=== PATIENT | male | born 1955 | race African-American/Black ===

== ENCOUNTER → 2020-07-23 | Emergency (ER) | payer MEDICAID ==
[~2020-07-23] VITALS: Ht 162.6 cm; Wt 68.0 kg
[~2020-07-23] MED LIST: Ketorolac 30mg Inj IV ONE; Morphine Sulfate 4mg/ml Inj (IV USE ONLY) IVP ONE
[2020-07-23 14:35] VITALS: BP 158/90
[2020-07-23 15:19] LABS: ANION GAP 15 mmol/L (5-15); BLOOD UREA NITROGEN 11 mg/dL (7-18); CALCIUM 8.6 MG/DL (8.5-10.1); CARBON DIOXIDE 20 MMOL/L (21-32); CHLORIDE 102 MMOL/L (98-107); CREATININE 1.1 MG/DL (0.55-1.30); POTASSIUM 3.7 MMOL/L (3.5-5.1); SODIUM 137 MMOL/L (136-145)
[2020-07-23 15:23] LABS: ALANINE AMINOTRANSFERASE 58 U/L (12-78); ALBUMIN 3.6 G/DL (3.4-5.0); ALBUMIN/GLOBULIN RATIO 0.8 (1.0-2.7); ALKALINE PHOSPHATASE 58 U/L (46-116); ASPARTATE AMINO TRANSFERASE 72 U/L (15-37); BILIRUBIN,TOTAL 0.7 MG/DL (0.2-1.0)
[2020-07-23 15:31] LABS: BASOPHILS % (AUTO) 1.7 % (0.0-2.0); EOSINOPHILS % (AUTO) 0.8 % (0.0-3.0); HEMATOCRIT 33.2 % (42.0-52.0); LYMPHOCYTES % (AUTO) 31.6 % (20.0-45.0); MEAN CORPUSCULAR VOLUME 87 FL (80-99); MONOCYTES % (AUTO) 8.6 % (1.0-10.0); NEUTROPHILS % (AUTO) 57.3 % (45.0-75.0); PLATELET COUNT 149 K/UL (150-450); RED BLOOD COUNT 3.81 M/UL (4.70-6.10); RED CELL DISTRIBUTION WIDTH 12.5 % (11.6-14.8); WHITE BLOOD COUNT 7.2 K/UL (4.8-10.8)
--- NOTE | 2020-07-23 15:35 | Diagnostic Imaging Report ---
EXAM: CT Head Without Intravenous Contrast CLINICAL HISTORY: PAIN TECHNIQUE: Axial computed tomography images of the head/brain without intravenous contrast. CTDI is 53.40 mGy and DLP is 1072.20 mGy-cm. One or more of the following dose reduction techniques were used: automated exposure control, adjustment of the mA and/or kV according to patient size, use of iterative reconstruction technique. COMPARISON: No relevant prior studies available. FINDINGS: Brain: No hemorrhage. No edema. Involutional changes. Ventricles: No ventriculomegaly. Bones/joints: No acute fracture. Soft tissues: Unremarkable. Sinuses: No acute sinusitis. Mastoid air cells: No mastoid effusion. Projectional artifact or fracture of the left shoulder. IMPRESSION: No acute intracranial process. Projectional artifact or fracture of the left shoulder, suggested on the poultry scientist.
--- NOTE | 2020-07-23 15:48 | Diagnostic Imaging Report ---
EXAM: XR Left Shoulder Complete, 2 or More Views CLINICAL HISTORY: PAIN TECHNIQUE: Two or more views of the left shoulder. COMPARISON: No relevant prior studies available. FINDINGS: Bones/joints: Comminuted fracture of the left shoulder with anterior and inferior dislocation of the humeral head relative to the glenoid. There is fragmentation and superior dislocation of the proximal humeral shaft. Soft tissues: No radiodense foreign body. IMPRESSION: Comminuted fracture of the left shoulder with anterior and inferior dislocation of the humeral head relative to the glenoid. There is fragmentation and superior dislocation of the proximal humeral shaft.
--- NOTE | 2020-07-23 15:49 | Diagnostic Imaging Report ---
EXAM: XR Left Humerus, 2 or More Views CLINICAL HISTORY: PAIN TECHNIQUE: Frontal and lateral views of the left humerus. COMPARISON: No relevant prior studies available. FINDINGS: Bones/joints: Comminuted fracture of the left shoulder with anterior and inferior dislocation of the humeral head relative to the glenoid. There is fragmentation and superior dislocation of the proximal humeral shaft. Soft tissues: No radiodense foreign body. IMPRESSION: Comminuted fracture of the left shoulder with anterior and inferior dislocation of the humeral head relative to the glenoid. There is fragmentation and superior dislocation of the proximal humeral shaft.
--- NOTE | 2020-07-23 16:18 | Diagnostic Imaging Report ---
EXAM: CT Cervical Spine Without Intravenous Contrast CLINICAL HISTORY: PAIN TECHNIQUE: Axial computed tomography images of the cervical spine without intravenous contrast. CTDI is 20.20 mGy and DLP is 505.10 mGy-cm. One or more of the following dose reduction techniques were used: automated exposure control, adjustment of the mA and/or kV according to patient size, use of iterative reconstruction technique. COMPARISON: No relevant prior studies available. FINDINGS: Vertebrae: No acute C-spine fracture or malalignment. Degenerative changes. Discs/spinal canal/neural foramina: Degenerative changes. Other bones/joints: Left shoulder fracture. Soft tissues: Unremarkable. Trachea: Mild debris in the trachea. Lung apices: Minimal emphysematous changes in the lung apices. IMPRESSION: No acute C-spine fracture or malalignment.
--- NOTE | 2020-07-23 16:23 | Emergency Room Report ---
History of Present Illness General Chief Complaint: Overdose Source: Patient (Melida Blackmon) Present Illness HPI 64 YO male presents to the ED BIBA for syncope while doing illicit drugs. Pt. reports Left shoulder and elbow pain that is 10/10 in severity and exacerbated with any movement of the left arm. He does not remember falling. He is unaware about what has happened. Pt. denies MORALES, neck or back pain. He denies paresthesias. He denies pmhx or allergies. HPI are limited due to pt. currently altered mentation and need for frequent redirection to pertinent questions. 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 (Melida Blackmon) Patient History Past Medical History: see triage record Past Surgical History: none Pertinent Family History: none Immunizations: UTD Reviewed Nursing Documentation: PMH: Agreed; PSxH: Agreed (Melida Blackmon) Nursing Documentation-PMH Past Medical History: No History, Except For (Melida Blackmon) Review of Systems All Other Systems: negative except mentioned in HPI (Melida Blackmon) Physical Exam Vital Signs Date Time Temp Pulse Resp B/P (MAP) Pulse Ox O2 Delivery O2 Flow Rate FiO2 07/23/20 14:25 98.4 96 18 158/90 (112) 98 Room Air Sp02 EP Interpretation: reviewed, normal General Appearance: alert, GCS 15, non-toxic, mild distress Head: normocephalic, atraumatic Eyes: left eye other - There is moderate swelling and visible contusion to the left zygomatic area. Patient has full extraocular motor movements. --- pt. denies tenderness on exam; bilateral eye normal inspection, bilateral eye PERRL, bilateral eye EOMI ENT: hearing grossly normal, normal voice, other - no oral lesions Neck: full range of motion, no bony tend Respiratory: chest non-tender, lungs clear, normal breath sounds, no respiratory distress, no wheezing, speaking full sentences Cardiovascular #1: regular rate, rhythm, no edema Cardiovascular #2: 3+ radial (R), 3+ radial (L) Gastrointestinal: non tender, soft, non-distended, no guarding, other - NO contusions, abdomen is soft Musculoskeletal: tender - Tenderness and visible drop-off of the left shoulder area. Tenderness to the left elbow. Limited range of motion of the left arm. NVI. No midline spinous process tenderness in the cervical, thoracic or lumbar spine. , swelling - left cheekbone area Neurologic: alert, oriented x3, sensory intact, responsive, speech normal Psychiatric: judgement/insight normal, no suicidal/homicidal ideation, other - Pt. has very very poor attention span upon arrival to the ED. Pt. was somewhat anxious Reflexes: 2+ ankle (R), 2+ ankle (L) Skin: Ecchymosis/Bruising - left cheekbone. , abrasion - nose and left cheek bone (Melida Blackmon) Medical Decision Making PA Attestation Dr. Schneider is my supervising Physician whom patient management has been discussed with. (Melida Blackmon) Diagnostic Impression: Primary Impression: Humeral head fracture Qualified Codes: S42.292A - Other displaced fracture of upper end of left humerus, initial encounter for closed fracture Additional Impressions: Zygomatic fracture Qualified Codes: S02.40FA - Zygomatic fracture, left side, initial encounter for closed fracture Fracture of inferior orbital wall Qualified Codes: S02.32XA - Fracture of orbital floor, left side, initial encounter for closed fracture Multiple contusions ER Course 64 YO male presents to the ED BIBA for syncope while doing illicit drugs. Pt. reports Left shoulder and elbow pain that is 10/10 in severity and exacerbated with any movement of the left arm. He does not remember falling. He is unaware about what has happened. Pt. denies MORALES, neck or back pain. He denies paresthesias. He denies pmhx or allergies. HPI are limited due to pt. currently altered mentation and need for frequent redirection to pertinent questions. Ddx considered but are not limited to Fracture, dislocation, contusion, Sprain/Strain/Spasm, overdose, cardiac event, intracranial bleed or hematoma. Vital signs: are WNL, pt. is afebrile H&PE are most consistent with musculoskeletal injury will perform imaging to r/o fractures/dislocations. Due to history of syncopal episode will do cardiac work-up in addition to work-up for acute drug intoxication. ORDERS: -EK Sinus Tach - Troponin: WNL -CBC, CMP: WNL - CK: mild elevation at 328 -UA: negative for infection see results attached. -UDS: Positive for PCP, Cocaine, Methamphetamine -Serum ETOH: 219 -Salicylates and Acetaminophen - no acute intoxication. - PT/PTT: WNL -ABO : B POSITIVE ED INTERVENTIONS: - 4mg Morphine IV -Toradol 15mg IV -- Left arm Sling applied by echo vasc tech. Pt. remains neurovascularly intact. DISPOSITION: PT. IS being transferred to [facility] for Complicated humeral head fracture, Dr. Bridges ( Trauma) has agreed to accept this patient. Labs Test 07/23/20 14:45 07/23/20 14:50 07/23/20 16:15 White Blood Count 7.2 K/UL (4.8-10.8) Red Blood Count 3.81 M/UL (4.70-6.10) Hemoglobin 11.0 G/DL (14.2-18.0) Hematocrit 33.2 % (42.0-52.0) Mean Corpuscular Volume 87 FL (80-99) Mean Corpuscular Hemoglobin 28.8 PG (27.0-31.0) Mean Corpuscular Hemoglobin Concent 33.0 G/DL (32.0-36.0) Red Cell Distribution Width 12.5 % (11.6-14.8) Platelet Count 149 K/UL (150-450) Mean Platelet Volume 6.6 FL (6.5-10.1) Neutrophils (%) (Auto) 57.3 % (45.0-75.0) Lymphocytes (%) (Auto) 31.6 % (20.0-45.0) Monocytes (%) (Auto) 8.6 % (1.0-10.0) Eosinophils (%) (Auto) 0.8 % (0.0-3.0) Basophils (%) (Auto) 1.7 % (0.0-2.0) Sodium Level 137 MMOL/L (136-145) Potassium Level 3.7 MMOL/L (3.5-5.1) Chloride Level 102 MMOL/L (98-107) Carbon Dioxide Level 20 MMOL/L (21-32) Anion Gap 15 mmol/L (5-15) Blood Urea Nitrogen 11 mg/dL (7-18) Creatinine 1.1 MG/DL (0.55-1.30) Estimat Glomerular Filtration Rate > 60 mL/min (>60) Glucose Level 98 MG/DL (74-106) Calcium Level 8.6 MG/DL (8.5-10.1) Total Bilirubin 0.7 MG/DL (0.2-1.0) Aspartate Amino Transf (AST/SGOT) 72 U/L (15-37) Alanine Aminotransferase (ALT/SGPT) 58 U/L (12-78) Alkaline Phosphatase 58 U/L (46-116) Total Protein 8.4 G/DL (6.4-8.2) Albumin 3.6 G/DL (3.4-5.0) Globulin 4.8 g/dL Albumin/Globulin Ratio 0.8 (1.0-2.7) Salicylates Level 3.0 ug/mL (2.8-20) Acetaminophen Level < 2 MCG/ML (10-30) Serum Alcohol 219 mg/dL Urine Opiates Screen Negative (NEGATIVE) Urine Barbiturates Screen Negative (NEGATIVE) Phencyclidine (PCP) Screen Positive (NEGATIVE) Urine Amphetamines Screen Negative (NEGATIVE) Urine Benzodiazepines Screen Negative (NEGATIVE) Urine Cocaine Screen Positive (NEGATIVE) Urine Marijuana (THC) Screen Positive (NEGATIVE) Prothrombin Time 11.1 SEC (9.30-11.50) Prothromb Time International Ratio 1.0 (0.9-1.1) Activated Partial Thromboplast Time 25 SEC (23-33) Total Creatine Kinase 328 U/L (26-308) Troponin I 0.000 ng/mL (0.000-0.056) (Melida Blackmon) ER Course I evaluated this patient alongside AISHA Blackmon. I agree with her management and assessment of this patient. On review of the shoulder x-ray I discussed with orthopedics here who agreed that this would require higher level of care transfer to a trauma center. I endorsed patient to trauma team at [facility]. Patient medically stabilized prior to transfer (Shawn Schneider MD) Other X-Ray Diagnostic Results Other X-Ray Diagnostic Results : X-Ray ordered: Left Shoulder # of Views/Limited Vs Complete: 3 View Indication: Pain EP Interpretation: Yes AISHA Xray: Interpretation reviewed, by supervising MD, and agrees with findings. Interpretation: no dislocation, no soft tissue swelling, other - Denuded fracture of the left shoulder with anterior and inferior dislocation of the humeral head relative to the glenoid. There is fragmentation and superior dislocation of the proximal humeral shaft."-- per radiology Impression: Other - comminuted humeral head fracture with severe displacement Electronically Signed by: Melida Blackmon PA-C (Melida Blackmon) CT/MRI/US Diagnostic Results CT/MRI/US Diagnostic Results #1: Imaging Test Ordered: CT Head No Contrast Impression " No evidence of acute intracranial bleed or fracture". --Per official radiology report- Please see report for specific details. CT/MRI/US Diagnostic Results #2: Imaging Test Ordered: CT C-SPine No Contrast Impression " No evidence of fracture or obvious dislocation, some of the left shoulder fracture is noted ". Per official radiology report- Please see report for specific details. CT/MRI/US Diagnostic Results #3: Imaging Test Ordered: CT Facial bones no Contrast Impression " Fractures of uncertain chronicity Involving the left inferior orbital wall and left zygomatic arch"--per official radiology report- Please see report for specific details. (Melida Blackmon) Last Vital Signs Date Time Temp Pulse Resp B/P (MAP) Pulse Ox O2 Delivery O2 Flow Rate FiO2 07/23/20 14:35 96 18 Room Air 07/23/20 14:35 98.4 158/90 98 Status: improved (Melida Blackmon) Disposition: ADMITTED INPATIENT Condition: Serious Referrals: [facility],REFERRING (PCP) Melida Blackmon Jul 23, 2020 16:23 Shawn Schneider MD Jul 23, 2020 20:08
[2020-07-23 16:50] LABS: CREATINE KINASE 328 U/L (26-308)
--- NOTE | 2020-07-23 17:19 | Diagnostic Imaging Report ---
EXAM: CT Maxillofacial Without Intravenous Contrast CLINICAL HISTORY: PAIN TECHNIQUE: Axial computed tomography images of the face without intravenous contrast. CTDI is 15.3 mGy and DLP is 366 mGy-cm. One or more of the following dose reduction techniques were used: automated exposure control, adjustment of the mA and/or kV according to patient size, use of iterative reconstruction technique. COMPARISON: No relevant prior studies available. FINDINGS: Bones/joints: Fractures of uncertain chronicity involving the left inferior orbital wall and left zygomatic arch. Soft tissues: Soft tissues swelling, most pronounced in the left side of the face. Dermal calcifications or foreign bodies bilaterally. Small lipoma in the forehead. Orbits: The globes are normal in morphology. Sinuses: Minimal sinus mucosal thickening. Dental: Dental related disease. IMPRESSION: Fractures of uncertain chronicity involving the left inferior orbital wall and left zygomatic arch.
[2020-07-23 18:42] VITALS: BP 169/92
== END | disposition short-term general hospital (02) ==
LOC: EDUNIT# 14:23 → EDBD 14:32 → EMR 15:10 → CANBEDREQ 17:14
DX: S42.292A Other displaced fracture of upper end of left humerus, initial encounter for closed fracture (principal); S02.40FA Zygomatic fracture, left side, initial encounter for closed fracture; S02.32XA Fracture of orbital floor, left side, initial encounter for closed fracture; S00.31XA Abrasion of nose, initial encounter; S00.81XA Abrasion of other part of head, initial encounter; W19.XXXA Unspecified fall, initial encounter; Y92.9 Unspecified place or not applicable; R00.0 Tachycardia, unspecified
CPT/HCPCS: 36415; 70450; 70486; 72125; 73030; 73060; 80053; 80307; 82550; 84484; 85025; 85610; 85730; 86850; 86900; 86901; 93005; 96361; 96374; 96375; G0480; G0481; J1885; J2270; U0002; Z7502; 99284